=== PATIENT | male | born 1940 | race Hispanic/Latino ===

== ENCOUNTER 2018-09-08 01:45 | Emergency (ER) | payer MEDICARE, OTHER ==
[2018-09-08 03:20] LABS: #Eosinphils 1.1 thou/uL (0.0-0.7); #Lymphocytes 1.3 thou/uL (1.20-3.40); #Monocytes 1.3 thou/uL (0.11-0.59); #Neutrophils 5.6 thou/uL (1.40-6.50); %Basophils 0.3 % (0.0-1.0); %Eosinophils 11.5 % (0.0-10.0); %Lymphocytes 13.8 % (21.0-51.0); %Monocytes 14.2 % (0.0-10.0); %Neutrophils 60.2 % (42.0-75.0); Hemoglobin 15.7 g/dL (14.0-18.0); Mean Corpuscular HGB CONC 33.9 g/dL (32.0-36.0); Mean Corpuscular Hemoglobin 32.7 pg (27.0-31.0); Mean Corpuscular Volume 96.3 fL (78.0-98.0); Mean Platelet Volume 8.3 fL (7.4-10.4); Platelet Count 168 thou/uL (130-400); RBC Distribution Width 11.8 % (11.5-14.5); Red Blood Cell (RBC) Count 4.81 mill/uL (4.70-6.10); White Blood Cell (WBC) Count 9.3 thou/uL (4.8-10.8)
[2018-09-08 03:45] LABS: ALT (SGPT) 21 U/L (8-55); AST (SGOT) 17 U/L (5-34); Albumin 3.9 g/dL (3.4-4.8); Alkaline Phosphatase 75 U/L (40-150); BUN (Urea Nitrogen) 14 mg/dL (8.4-25.7); Bilirubin, Total 1.2 mg/dL (0.2-1.2); Calc. Creatinine Clearance 0 mL/min (70-130); Calcium 8.8 mg/dL (7.8-10.44); Carbon Dioxide 24 mmol/L (23-31); Estimated GFR-MDRD 68; Globulin 2.1 g/dL (2.4-3.5); Glucose 91 mg/dL (83-110)
[2018-09-08 03:50] LABS: Chloride 108 mmol/L (98-107); Potassium 3.9 mmol/L (3.5-5.1); Sodium 139 mmol/L (136-145)
[2018-09-08] MEDS ORDERED: predniSONE 20 MG TAB ONE (04:03)
[2018-09-08 04:20] LABS: Anion Gap 9 mmol/L (10-20)
== END 2018-09-08 04:07 | disposition home or self-care (01) ==
LOC: ERS 01:45
DX: L12.0 Bullous pemphigoid (principal); F41.9 Anxiety disorder, unspecified; F32.9 Major depressive disorder, single episode, unspecified; K21.9 Gastro-esophageal reflux disease without esophagitis; Z79.82 Long term (current) use of aspirin; Z79.899 Other long term (current) drug therapy
CPT/HCPCS: 36415; 80053; 85025; 99283; J7506

== ENCOUNTER 2020-06-04 09:12 | Emergency (ER) | payer MEDICARE, OTHER ==
--- NOTE | 2020-06-04 09:50 | ULT ---
EXAM: Left lower extremity venous Doppler US HISTORY: left lower extremity edema, erythema and pain FINDINGS: Grayscale, color-flow, Doppler evaluation, spectral analysis of the left lower extremity venous struc tures is performed with 2-D imaging. The left common femoral, superficial femoral, popliteal, posterior tibial, proximal greater saphenous and profunda femoral veins are imaged. There is normal luminal compressibility, flow, and augmentation the visualized deep venous structures of the left lower extremity. IMPRESSION: No evidence of a deep vein thrombosis in the left lower extremity.
== END 2020-06-04 10:02 | disposition home or self-care (01) ==
LOC: ERS 09:12
DX: S86.912A Strain of unspecified muscle(s) and tendon(s) at lower leg level, left leg, initial encounter (principal); K21.9 Gastro-esophageal reflux disease without esophagitis; I10 Essential (primary) hypertension; F41.9 Anxiety disorder, unspecified; F32.9 Major depressive disorder, single episode, unspecified; Z79.899 Other long term (current) drug therapy; X58.XXXA Exposure to other specified factors, initial encounter

== ENCOUNTER 2020-06-22 23:47 | Emergency (ER) | payer MEDICARE, OTHER ==
[2020-06-23 00:54] LABS: #Eosinphils 0.3 thou/uL (0.0-0.7); #Lymphocytes 1.3 thou/uL (1.20-3.40); #Monocytes 0.7 thou/uL (0.11-0.59); #Neutrophils 3.8 thou/uL (1.40-6.50); %Basophils 0.4 % (0.0-1.0); %Eosinophils 4.3 % (0.0-10.0); %Lymphocytes 21.8 % (21.0-51.0); %Neutrophils 62.5 % (42.0-75.0); Hemoglobin 15.1 g/dL (14.0-18.0); Mean Corpuscular HGB CONC 33.2 g/dL (32.0-36.0); Mean Corpuscular Hemoglobin 30.8 pg (27.0-31.0); Mean Corpuscular Volume 92.8 fL (78.0-98.0); Mean Platelet Volume 8.6 fL (7.4-10.4); Platelet Count 167 thou/uL (130-400); RBC Distribution Width 11.4 % (11.5-14.5); Red Blood Cell (RBC) Count 4.92 mill/uL (4.70-6.10)
[2020-06-23 01:00] LABS: INR-International Normal Ratio 1.2; PTT 30.8 sec (22.9-36.1); Prothrombin Time 14.7 sec (12.0-14.7)
[2020-06-23 01:18] LABS: ALT (SGPT) 14 U/L (8-55); AST (SGOT) 14 U/L (5-34); Albumin 4.3 g/dL (3.4-4.8); Alkaline Phosphatase 74 U/L (40-110); Anion Gap 10 mmol/L (10-20); BUN (Urea Nitrogen) 17 mg/dL (8.4-25.7); Bilirubin, Total 0.7 mg/dL (0.2-1.2); Calc. Creatinine Clearance 0 mL/min (70-130); Calcium 9.5 mg/dL (7.8-10.44); Carbon Dioxide 26 mmol/L (23-31); Chloride 109 mmol/L (98-107); Estimated GFR-MDRD 65; Glucose 120 mg/dL (83-110); Protein, Total 6.3 g/dL (5.8-8.1); Sodium 141 mmol/L (136-145)
[2020-06-23] MEDS ORDERED: Ondansetron ODT 8 MG TAB ONE (02:52)
[2020-06-23] MEDS ORDERED: HYDROcodone/Acetaminophen 5/325 mg Tablet ONE (02:52)
[2020-06-23 02:54] LABS: Bilirubin Negative (Negative); Blood, Urine Negative (Negative); Clarity Clear (Clear); Glucose, Urine (Dipstick) Normal (Negative); Ketone, Urine Negative (Negative); Leukocyte Negative Leu/uL (Negative); Nitrite Negative (Negative); Protein, Urine (Dipstick) Negative (Neg-Trace); Specific Gravity, Urine 1.011 (1.002-1.036); Urobilinogen Normal mg/dL (Less than 2); pH, Urine 5.5 (5.0-9.0)
== END 2020-06-23 05:00 | disposition home or self-care (01) ==
LOC: ERS 23:47
DX: S91.351A Open bite, right foot, initial encounter (principal); F41.9 Anxiety disorder, unspecified; F32.9 Major depressive disorder, single episode, unspecified; K21.9 Gastro-esophageal reflux disease without esophagitis; I10 Essential (primary) hypertension; Z79.899 Other long term (current) drug therapy; W59.11XA Bitten by nonvenomous snake, initial encounter
CPT/HCPCS: 36415; 80053; 81003; 85025; 85384; 85610; 85730; 90471; 93005; Q0162